=== PATIENT | female | born 1970 | race African-American/Black ===

== ENCOUNTER 2018-01-05 08:57 | Emergency (ER) | payer MEDICAID ==
[~2018-01-05] VITALS: Ht 165.1 cm; Wt 46.3 kg
[2018-01-05] MEDS ORDERED: ONDANSETRON HCL/PF 4 MG/2 ML VIAL ONE ×2 (09:09→11:21)
[2018-01-05 09:22] LABS: BASOPHILS % (AUTO) 0.1 % (0.0-2.0); HEMATOCRIT 28 % (33-45); HEMOGLOBIN 8.1 g/dL (11.5-14.8); LYMPHOCYTES # (AUTO) 0.3 /CMM (0.8-4.8); LYMPHOCYTES % (AUTO) 4.4 % (20.0-44.0); MEAN CORPUSCULAR HGB CONC 30 g/dl (31.0-36.0); MEAN CORPUSCULAR VOLUME 73 fL (82-100); MONOCYTES # (AUTO) 0.4 /CMM (0.1-1.30); NEUTROPHILS # (AUTO) 6.9 /CMM (1.8-8.9); NEUTROPHILS % (AUTO) 90.5 % (43.0-81.0); PLATELET COUNT (AUTO) 648 /CMM (150-450); RDW COEFFICIENT OF VARIATION 20.7 (11.5-15.0); RED BLOOD CELL COUNT(AUTO) 3.77 MIL/uL (4.0-5.2); WHITE BLOOD COUNT (AUTO) 7.6 K/uL (4.3-11.0)
[2018-01-05] MEDS ORDERED: ONDANSETRON HCL/PF 4 MG/2 ML VIAL IVP ONE (09:30)
[2018-01-05] MEDS ORDERED: IV NS 0.9% 1,000 ML BAG IV ONE (09:30)
[2018-01-05 09:36] LABS: CALCIUM, SERUM 8.3 mg/dL (8.5-10.1); CREATININE 2.2 mg/dL (0.6-1.3)
[2018-01-05 09:41] LABS: ALBUMIN 2.7 g/dL (3.4-5.0); BILIRUBIN,DIRECT 0.3 mg/dL (0.0-0.2); BILIRUBIN,TOTAL 1.2 mg/dL (0.2-1.0); TOTAL PROTEIN, SERUM 7.6 g/dL (6.4-8.2)
[2018-01-05 09:45] LABS: INR 1.32 (0.87-1.13)
[2018-01-05] MEDS ORDERED: IV D5/0.45 NACL 1,000 ML IV PRN (10:00)
--- NOTE | 2018-01-05 10:00 | NUR ---
Family/daughter at bedside updated with plan of care
[2018-01-05 10:28] LABS: BAND % (MANUAL) 16 % (0.0-5.0); LYMPHOCYTES % (MANUAL) 5 % (16-48); MONOCYTES % (MANUAL) 7 % (0-11.0); NEUTROPHILS % (MANUAL) 72 (42-76)
[2018-01-05] MEDS ORDERED: ONDANSETRON HCL/PF - ER 4 MG/2 ML VIAL IV ONE (11:30)
[2018-01-05] MEDS ORDERED: IV NS 0.9% 500 ML IV ONE (11:30)
--- NOTE | 2018-01-05 12:00 | NUR ---
Daughter Yasir updated by Dr Edge. Status quo-NO acute changes NO obvious distress. Pending transfer to [facility]
--- NOTE | 2018-01-05 12:18 | NUR ---
[facility] CALLED WITH TX INFORMATION PATIENT WILL BE TX TO [facility] ROOM 203-A NUMBER TO CALL REPORT IS [phone] ETA [id number]
--- NOTE | 2018-01-05 13:10 | NUR ---
REPORT GIVEN TO SARAH NANCE. PT PENDING TRANSFER TO [facility].
[2018-01-05 13:48] VITALS: BP 99/78
== END 2018-01-05 13:44 | disposition short-term general hospital (02) ==
LOC: ER 09:01
DX: E86.0 Dehydration (principal); R62.7 Adult failure to thrive; C18.9 Malignant neoplasm of colon, unspecified; N28.9 Disorder of kidney and ureter, unspecified; R53.1 Weakness; Z88.8 Allergy status to other drugs, medicaments and biological substances
CPT/HCPCS: 36415; 71045; 74021; 80048; 80076; 82962; 83690; 83735; 84484; 85025; 85730; 87040 ×2; 93005; 96361; 96374; 96376; 99285; A4606; J2405 ×2; J3490; J7030; J7040; Z7610; 87186-TC